=== PATIENT | female | born 1945 | race Caucasian/White ===

== ENCOUNTER 2017-04-24 17:53 | Inpatient (IN) | payer MEDICARE ==
[2017-04-24] MEDS ORDERED: SODIUM CHLORIDE 0.9% 1,000 ML IV STA (18:42)
[2017-04-24] MEDS ORDERED: IPRATROPIUM-ALBUTEROL 3 ML NEB INHALATION STA (18:42)
--- NOTE | 2017-04-24 18:45 | ED ---
General Adult HPI <Yao Juarez - Last Filed: 04/24/17 21:07> - General Source: patient, family, RN notes reviewed, old records reviewed Mode of arrival: wheelchair Limitations: no limitations <Myles Vieira - Last Filed: 04/28/17 14:29> - General Chief complaint: Shortness of Breath Stated complaint: congestion/swelling in legs Time Seen by Provider: 04/24/17 18:29 - History of Present Illness Initial comments: Patient 72-year-old female with significant past medical history for COPD, CHF, who presents emergency room today with a chief complaint of increased shortness of breath over the last week. She does admit that symptoms started a few weeks ago but is been progressively getting worse. Does admit that she's had some increased swelling down into her legs particular her right foot. Patient denies any other complaints or symptoms. She has been using Lasix 40 mg twice a day. Patient denies any fever, chills, chest pain, back pain, abdominal pain , nausea or vomiting, numbness tingling, dysuria, hematuria, headache, visual change. (Myles Vieira) - Related Data Home Medications Medication Instructions Recorded Confirmed Aspirin EC [Ecotrin Low Dose] 81 mg PO HS 07/03/16 04/24/17 ALPRAZolam [Xanax] 0.25 mg PO TID PRN 04/24/17 04/24/17 Furosemide [Lasix] 40 mg PO BID 04/24/17 04/24/17 Warfarin [Coumadin] 2.5 mg PO HS 04/24/17 04/24/17 Previous Rx's Medication Instructions Recorded Carvedilol [Coreg] 6.25 mg PO BID #60 tab 08/08/16 Allergies Allergy/AdvReac Type Severity Reaction Status Date / Time morphine AdvReac Altered Verified 04/24/17 20:07 Mental Status Review of Systems ROS Other: All systems not noted in ROS Statement are negative. <Yao Juarez - Last Filed: 04/24/17 21:07> ROS Other: All systems not noted in ROS Statement are negative. <Myles Vieira - Last Filed: 04/28/17 14:29> ROS Statement: Those systems with pertinent positive or pertinent negative responses have been documented in the HPI. Past Medical History Past Medical History: Asthma, Coronary Artery Disease (CAD), Cancer, COPD, Hyperlipidemia, Hypertension, Vascular Disorder Additional Past Medical History / Comment(s): 02 2-3 liters n/c: chronic heart failure, ischemic cardiopathy, 06/01/15 echo with L ventricular systolic function severely impaired with EF <20%, pt states lately she has had some bilateral ankle and feet edema, 2008 R breast cancer with sx and chemo, PVD, R foot numbness, some bilateral leg discomfort."HAD A PNE VACCINE 2014 NOT SURE OF DATE,DR OFFICE CLOSED AT TIME OF ADMIT. History of Any Multi-Drug Resistant Organisms: None Reported Past Surgical History: Breast Surgery, Heart Catheterization With Stent Additional Past Surgical History / Comment(s): 07/20/13 cardiac cath with stents x 2 to LCX, 06/03/15 ccath with stent to RCA, 09/2013 abd aneurysm repair bilateral fem bypass, 2008 right sided mastectomy Past Anesthesia/Blood Transfusion Reactions: No Reported Reaction Additional Past Anesthesia/Blood Transfusion Reaction / Comment(s): Pt received blood in the past without reaction. Date of Last Stent Placement:: 06/03/15 Past Psychological History: Anxiety Smoking Status: Former smoker Past Alcohol Use History: None Reported Past Drug Use History: None Reported - Past Family History Brother(s) Family Medical History: Cancer, Coronary Artery Disease (CAD) Additional Family Medical History / Comment(s): lost 2 brothers, one to suicide the other to brain/lung cancer Father Family Medical History: COPD Additional Family Medical History / Comment(s): Father was an alcoholic. He at age 56yrs of alcoholism and heart dx. Mother Family Medical History: No Reported History Additional Family Medical History / Comment(s): Mother is 91 yrs old and lives in a senior living but is basically healthy. <Myles Vieira - Last Filed: 04/28/17 14:29> General Exam Limitations: no limitations General appearance: alert, in no apparent distress Head exam: Present: atraumatic, normocephalic, normal inspection Eye exam: Present: normal appearance, PERRL, EOMI. Absent: scleral icterus, conjunctival injection, periorbital swelling ENT exam: Present: normal exam, mucous membranes moist Neck exam: Present: normal inspection. Absent: tenderness, meningismus, lymphadenopathy Respiratory exam: Present: accessory muscle use, decreased breath sounds Cardiovascular Exam: Present: regular rate, normal rhythm, normal heart sounds. Absent: systolic murmur, diastolic murmur, rubs, gallop, clicks GI/Abdominal exam: Present: soft, normal bowel sounds. Absent: distended, tenderness, guarding, rebound, rigid Extremities exam: Present: normal inspection, full ROM, normal capillary refill , pedal edema (R>L), other (Pulses equal bilaterally). Absent: tenderness, calf tenderness Back exam: Present: normal inspection Neurological exam: Present: alert, oriented X3, CN II-XII intact Psychiatric exam: Present: normal affect, normal mood Skin exam: Present: warm, dry, intact, normal color. Absent: rash <Myles Vieira - Last Filed: 04/28/17 14:29> EKG Findings - EKG Comments: EKG Findings:: EKG performed at 2039: Shows normal sinus rhythm at 60 bpm. MO interval 124. QRS 88. QT/QTc 472/479. No acute ST change. <Myles Vieira - Last Filed: 04/28/17 14:29> Medical Decision Making - Lab Data Result diagrams: 04/24/17 19:30 04/24/17 19:30 <Yao Juarez - Last Filed: 04/24/17 21:07> - Lab Data Result diagrams: 04/26/17 07:05 04/27/17 07:40 <Myles Vieira - Last Filed: 04/28/17 14:29> - Medical Decision Making I was asked to enter replacement ordered for this patient. I did not take part in the patient's care other than placing the requested placement order. (Yao Juarez) Case was discussed and signed out to attending physician while labs were still pending at approximately 2000. Patient's labs reviewed show elevated BNP. Patient's INR 3.2. Coumadin held. Patient admitted for congestive heart failure exacerbation. (Myles Vieira) - Lab Data Lab Results 04/24/17 04/24/17 04/24/17 Range/Units 19:30 19:30 19:30 WBC 7.0 (3.8-10.6) k/uL RBC 4.82 (3.80-5.40) m/uL Hgb 14.9 (11.4-16.0) gm/dL Hct 45.0 (34.0-46.0) % MCV 93.3 (80.0-100.0) fL MCH 30.9 (25.0-35.0) pg MCHC 33.1 (31.0-37.0) g/dL RDW 15.3 (11.5-15.5) % Plt Count 270 (150-450) k/uL Neutrophils % 60 % Lymphocytes % 28 % Monocytes % 6 % Eosinophils % 2 % Basophils % 1 % Neutrophils # 4.2 (1.3-7.7) k/uL Lymphocytes # 2.0 (1.0-4.8) k/uL Monocytes # 0.4 (0-1.0) k/uL Eosinophils # 0.1 (0-0.7) k/uL Basophils # 0.1 (0-0.2) k/uL Hypochromasia Moderate Poikilocytosis Slight PT (9.0-12.0) sec INR (<1.2) APTT (22.0-30.0) sec Sodium 142 (137-145) mmol/L Potassium 3.2 L (3.5-5.1) mmol/L Chloride 104 (98-107) mmol/L Carbon Dioxide 26 (22-30) mmol/L Anion Gap 12 mmol/L BUN 16 (7-17) mg/dL Creatinine 0.76 (0.52-1.04) mg/dL Est GFR (MDRD) Af Amer >60 (>60 ml/min/1.73 sqM) Est GFR (MDRD) Non-Af >60 (>60 ml/min/1.73 sqM) Glucose 76 (74-99) mg/dL Calcium 9.1 (8.4-10.2) mg/dL Total Bilirubin 1.0 (0.2-1.3) mg/dL AST 31 (14-36) U/L ALT 33 (9-52) U/L Alkaline Phosphatase 115 (38-126) U/L Total Creatine Kinase (30-135) U/L CK-MB (CK-2) (0.0-2.4) ng/mL CK-MB (CK-2) Rel Index Troponin I (0.000-0.034) ng/mL NT-Pro-B Natriuret Pep 94046 pg/mL Total Protein 6.6 (6.3-8.2) g/dL Albumin 3.7 (3.5-5.0) g/dL 04/24/17 04/24/17 Range/Units 19:30 19:30 WBC (3.8-10.6) k/uL RBC (3.80-5.40) m/uL Hgb (11.4-16.0) gm/dL Hct (34.0-46.0) % MCV (80.0-100.0) fL MCH (25.0-35.0) pg MCHC (31.0-37.0) g/dL RDW (11.5-15.5) % Plt Count (150-450) k/uL Neutrophils % % Lymphocytes % % Monocytes % % Eosinophils % % Basophils % % Neutrophils # (1.3-7.7) k/uL Lymphocytes # (1.0-4.8) k/uL Monocytes # (0-1.0) k/uL Eosinophils # (0-0.7) k/uL Basophils # (0-0.2) k/uL Hypochromasia Poikilocytosis PT 31.5 H (9.0-12.0) sec INR 3.2 H (<1.2) APTT 31.2 H (22.0-30.0) sec Sodium (137-145) mmol/L Potassium (3.5-5.1) mmol/L Chloride (98-107) mmol/L Carbon Dioxide (22-30) mmol/L Anion Gap mmol/L BUN (7-17) mg/dL Creatinine (0.52-1.04) mg/dL Est GFR (MDRD) Af Amer (>60 ml/min/1.73 sqM) Est GFR (MDRD) Non-Af (>60 ml/min/1.73 sqM) Glucose (74-99) mg/dL Calcium (8.4-10.2) mg/dL Total Bilirubin (0.2-1.3) mg/dL AST (14-36) U/L ALT (9-52) U/L Alkaline Phosphatase (38-126) U/L Total Creatine Kinase 55 (30-135) U/L CK-MB (CK-2) 2.3 (0.0-2.4) ng/mL CK-MB (CK-2) Rel Index 4.2 Troponin I <0.012 (0.000-0.034) ng/mL NT-Pro-B Natriuret Pep pg/mL Total Protein (6.3-8.2) g/dL Albumin (3.5-5.0) g/dL Disposition <Yao Juarez - Last Filed: 04/24/17 21:07> Time of Disposition: 19:25 <Myles Vieira - Last Filed: 04/28/17 14:29> Clinical Impression: CHF exacerbation Disposition: ADMITTED IP TO THIS HOSP Condition: Stable
[2017-04-24] MEDS ORDERED: FUROSEMIDE 10 MG/ML 4 ML VIAL IV STA (18:57)
[2017-04-24] MEDS ORDERED: IPRATROPIUM-ALBUTEROL 3 ML NEB INHALATION PRN (18:58)
[2017-04-24 19:49] LABS: Basophils # (A) 0.1 k/uL (0-0.2); Basophils % (A) 1 %; CH 29.3; CHCM 31.6; Eosinophils # (A) 0.1 k/uL (0-0.7); Eosinophils % (A) 2 %; HDW 3.46; HGB 14.9 gm/dL (11.4-16.0); Hypochromasia Moderate; Luc # (Auto) 0.19; Luc % (Auto) 3; Lymphocytes % (A) 28 %; MCH 30.9 pg (25.0-35.0); MCHC 33.1 g/dL (31.0-37.0); MCV 93.3 fL (80.0-100.0); Mean Platelet Volume 7.3; Monocytes # (A) 0.4 k/uL (0-1.0); Monocytes % (A) 6 %; Neutrophils # (A) 4.2 k/uL (1.3-7.7); Neutrophils % (A) 60 %; Poikilocytosis Slight; RBC 4.82 m/uL (3.80-5.40); RDW 15.3 % (11.5-15.5); WBC (Perox) 7.06
[2017-04-24 19:52] LABS: ALT 33 U/L (9-52); AST 31 U/L (14-36); Alkaline Phosphatase 115 U/L (38-126); Anion Gap 12 mmol/L; Blood Urea Nitrogen 16 mg/dL (7-17); Calcium 9.1 mg/dL (8.4-10.2); Carbon Dioxide 26 mmol/L (22-30); Chloride 104 mmol/L (98-107); Glucose 76 mg/dL (74-99); INR 3.2 (<1.2); Non-African American GFR(MDRD) >60 (>60 ml/min/1.73 sqM); Partial Thromboplastin Time 31.2 sec (22.0-30.0); Potassium 3.2 mmol/L (3.5-5.1); Prothrombin Time 31.5 sec (9.0-12.0); Sodium 142 mmol/L (137-145); Total Protein 6.6 g/dL (6.3-8.2)
[2017-04-24 20:01] LABS: Creatine Kinase 55 U/L (30-135)
[2017-04-24 20:15] LABS: Creatine Kinase MB 2.3 ng/mL (0.0-2.4); Troponin I <0.012 ng/mL (0.000-0.034)
--- NOTE | 2017-04-24 20:45 | XR ---
EXAMINATION TYPE: XR chest 2V DATE OF EXAM: 04/24/2017 COMPARISON: 08/07/2016 HISTORY: Short of breath TECHNIQUE: Frontal and lateral views of the chest are obtained. FINDINGS: Heart is enlarged. There is no heart failure. Lungs are clear of consolidation. Thoracic a rick is atheromatous. There is no pleural effusion. IMPRESSION: Cardiomegaly. No heart failure. There is clearing of small pleural effusions compared to old exam.
[2017-04-25] MEDS: FUROSEMIDE 10 MG/ML 4 ML VIAL IV SCH ×3 (01:20→15:35)
[2017-04-25] MEDS: SODIUM CHLORIDE 0.9% 1,000 ML IV SCH ×2 (01:33→20:10)
--- NOTE | 2017-04-25 08:58 | P.HPIM ---
History of Present Illness H&P Date: 04/25/17 Chief Complaint: Shortness of breath. This is a history and physical on a 72-year-old white female with known history of previous breast cancer and deep vein thrombosis with element of COPD. The patient was doing quite well at home, doing her activities of daily living for the most summer but had 2-3 day worsening shortness of breath with edema. She is now admitted for COPD with congestive heart failure. Review of Systems Constitutional: Denies chills, Denies fever Eyes: denies blurred vision, denies pain Ears, nose, mouth and throat: Denies headache, Denies sore throat Respiratory: Reports cough Gastrointestinal: Denies abdominal pain, Denies diarrhea, Denies nausea, Denies vomiting Genitourinary: Denies dysuria, Denies hematuria Past Medical History Past Medical History: Asthma, Coronary Artery Disease (CAD), Cancer, COPD, Hyperlipidemia, Hypertension, Vascular Disorder Additional Past Medical History / Comment(s): 02 2-3 liters n/c: chronic heart failure, ischemic cardiopathy, 06/01/15 echo with L ventricular systolic function severely impaired with EF <20%, pt states lately she has had some bilateral ankle and feet edema, 2008 R breast cancer with sx and chemo, PVD, R foot numbness, some bilateral leg discomfort."HAD A PNE VACCINE 2014 NOT SURE OF DATE,DR OFFICE CLOSED AT TIME OF ADMIT. History of Any Multi-Drug Resistant Organisms: None Reported Past Surgical History: Breast Surgery, Heart Catheterization With Stent Additional Past Surgical History / Comment(s): 07/20/13 cardiac cath with stents x 2 to LCX, 06/03/15 ccath with stent to RCA, 09/2013 abd aneurysm repair bilateral fem bypass, 2009 right sided mastectomy Past Anesthesia/Blood Transfusion Reactions: No Reported Reaction Additional Past Anesthesia/Blood Transfusion Reaction / Comment(s): Pt received blood in the past without reaction. 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 currentl recieving home cares services.(visiting nurses)5 Smoking Status: Former smoker Past Alcohol Use History: None Reported Additional Past Alcohol Use History / Comment(s): Pt smoked from 1963 to 2012 . She has not had any alcohol since age 23 yrs because her father was an alcoholic. There is a cat in the home. Past Drug Use History: None Reported Additional Drug Use History / Comment(s): no drinking since age 23 as dad was an alcoholic - Past Family History Brother(s) Family Medical History: Cancer, Coronary Artery Disease (CAD) Additional Family Medical History / Comment(s): lost 2 brothers, one to suicide the other to brain/lung cancer Father Family Medical History: COPD Additional Family Medical History / Comment(s): Father was an alcoholic. He at age 56yrs of alcoholism and heart dx. Mother Family Medical History: No Reported History Additional Family Medical History / Comment(s): Mother is at age 92, 11/23 Medications and Allergies Home Medications Medication Instructions Recorded Confirmed Type Aspirin EC [Ecotrin Low Dose] 81 mg PO HS 07/03/16 04/24/17 History ALPRAZolam [Xanax] 0.25 mg PO TID PRN 04/24/17 04/24/17 History Furosemide [Lasix] 40 mg PO BID 04/24/17 04/24/17 History Warfarin [Coumadin] 2.5 mg PO HS 04/24/17 04/24/17 History Allergies Allergy/AdvReac Type Severity Reaction Status Date / Time morphine AdvReac Altered Verified 04/24/17 20:07 Mental Status Physical Exam Vitals: Vital Signs Temp Pulse Pulse Resp BP BP Pulse Ox 04/25/17 07:00 97.6 F 71 18 134/93 100 04/24/17 22:35 95.3 F L 92 24 141/98 100 04/24/17 22:00 86 20 147/90 96 04/24/17 21:01 74 22 108/62 95 04/24/17 19:35 69 22 145/69 93 L 04/24/17 19:05 72 04/24/17 18:52 67 04/24/17 18:21 96.8 F L 65 22 132/82 98 Intake and Output 04/24/17 04/25/17 04/25/17 22:59 06:59 14:59 Intake Total 200 Balance 200 Intake: Oral 200 Other: # Voids 4 # Bowel Movements 0 Weight 40.823 kg 45.677 kg - Constitutional General appearance: thin - EENT Eyes: no abnormal pupil - Respiratory Respiratory: bilateral: diminished - Cardiovascular Rhythm: regular Heart sounds: normal: S1, S2 - Gastrointestinal General gastrointestinal: soft, no tenderness - Integumentary Edema is noted on the right greater than the left lower extremity. - Psychiatric Psychiatric: A&O x's 3 Results CBC & Chem 7: 04/24/17 19:30 04/24/17 19:30 Labs: Abnormal Lab Results - Last 24 Hours (Table) 04/24/17 04/24/17 Range/Units 19:30 19:30 PT 31.5 H (9.0-12.0) sec INR 3.2 H (<1.2) APTT 31.2 H (22.0-30.0) sec Potassium 3.2 L (3.5-5.1) mmol/L Thrombosis Risk Factor Assmnt - Choose All That Apply Each Factor Represents 1 point: Swollen legs (current) Thrombosis Risk Factor Assessment Total Risk Factor Score: 1 Thrombosis Risk Factor Assessment Level: Low Risk Assessment and Plan (1) CHF exacerbation Status: Acute (2) Acute exacerbation of chronic obstructive airways disease Status: Acute (3) CAD (coronary artery disease) Status: Acute (4) HTN (hypertension) Status: Acute (5) High risk for readmission Status: Acute (6) Ischemic cardiomyopathy Status: Acute Plan: Continue diuresis with the patient. Check echocardiogram per Check CMP and CBC in a.m. We'll continue to follow. She wishes to be DO NOT RESUSCITATE at this time.
[2017-04-25] MEDS ORDERED: ALPRAZolam 0.25 MG TAB PO PRN (08:59)
[2017-04-25] MEDS: CARVEDILOL 6.25 MG TAB PO SCH ×2 (10:04→20:07)
[2017-04-25] MEDS ORDERED: ACETAMINOPHEN TAB 325 MG TAB PO PRN (10:06)
[2017-04-25 10:52] VITALS: BMI 17.8
[2017-04-25] MEDS: ASPIRIN 81 MG CHEW PO SCH (20:07)
[2017-04-25] MEDS ORDERED: WARFARIN 2.5 MG TAB PO SCH (21:00)
[2017-04-26] MEDS: FUROSEMIDE 10 MG/ML 4 ML VIAL IV SCH ×4 (00:11→23:39)
[2017-04-26] MEDS: CARVEDILOL 6.25 MG TAB PO SCH ×2 (07:28→19:58)
[2017-04-26 07:43] LABS: Anisocytosis Slight; CH 30.3; HCT 44.5 % (34.0-46.0); HDW 3.21; HGB 13.6 gm/dL (11.4-16.0); Hypochromasia Moderate; MCHC 30.6 g/dL (31.0-37.0); MCV 98.1 fL (80.0-100.0); Macrocytosis Slight; Mean Platelet Volume 8.2; RBC 4.54 m/uL (3.80-5.40); RDW 16.6 % (11.5-15.5); WBC 8.7 k/uL (3.8-10.6)
[2017-04-26 07:48] LABS: INR 1.8 (<1.2); Prothrombin Time 17.5 sec (9.0-12.0)
[2017-04-26 08:15] LABS: ALT 29 U/L (9-52); AST 35 U/L (14-36); Alkaline Phosphatase 98 U/L (38-126); Anion Gap 7 mmol/L; Blood Urea Nitrogen 20 mg/dL (7-17); Calcium 8.7 mg/dL (8.4-10.2); Carbon Dioxide 34 mmol/L (22-30); Chloride 99 mmol/L (98-107); Glucose 73 mg/dL (74-99); Non-African American GFR(MDRD) >60 (>60 ml/min/1.73 sqM); Sodium 140 mmol/L (137-145); Total Bilirubin 1.4 mg/dL (0.2-1.3); Total Protein 6.2 g/dL (6.3-8.2)
[2017-04-26 08:27] LABS: Potassium 3.5 mmol/L (3.5-5.1)
--- NOTE | 2017-04-26 08:46 | P.PN ---
Subjective Principal diagnosis: Congestive heart failure The patient is here essentially for CHF. The patient is doing much better but still has some edema. Breathing is still somewhat labored. Will continue current regimen or treatment. She has an underlying history of DVT and previous breast cancer also. Echocardiogram is pending. Objective - Vital Signs Vital signs: Vital Signs Temp 97.6 F 04/26/17 07:00 Pulse 64 04/26/17 07:00 Resp 18 04/26/17 07:00 BP 116/76 04/26/17 07:00 Pulse Ox 99 04/26/17 07:00 Intake & Output 04/25/17 04/26/17 04/26/17 18:59 06:59 18:59 Weight 45.677 kg 44 kg Other: # Voids 6 1 - Constitutional General appearance: Present: thin - EENT Eyes: Absent: abnormal pupil - Respiratory Respiratory: bilateral: diminished, prolonged expiration - Cardiovascular Heart sounds: normal: S1, S2 - Gastrointestinal General gastrointestinal: Present: soft. Absent: tenderness - Neurologic Neurologic: Present: CNII-XII intact - Labs CBC & Chem 7: 04/26/17 07:05 04/26/17 07:05 Labs: Abnormal Lab Results - Last 24 Hours (Table) 04/26/17 04/26/17 04/26/17 Range/Units 07:05 07:05 07:05 MCHC 30.6 L (31.0-37.0) g/dL RDW 16.6 H (11.5-15.5) % PT 17.5 H (9.0-12.0) sec INR 1.8 H (<1.2) Carbon Dioxide 34 H (22-30) mmol/L BUN 20 H (7-17) mg/dL Glucose 73 L (74-99) mg/dL Total Bilirubin 1.4 H (0.2-1.3) mg/dL Total Protein 6.2 L (6.3-8.2) g/dL Albumin 3.3 L (3.5-5.0) g/dL Assessment and Plan (1) CHF exacerbation Status: Acute (2) Acute exacerbation of chronic obstructive airways disease Status: Acute (3) CAD (coronary artery disease) Status: Acute (4) HTN (hypertension) Status: Acute (5) High risk for readmission Status: Acute (6) Ischemic cardiomyopathy Status: Acute Plan: Continue current regimen of treatment. Wean off of IV Lasix in the next several days. Anticipate discharge in next 48 hours or so. [facility] will be covering for the weekend Check CMP in a.m.
--- NOTE | 2017-04-26 10:43 | ECHOF ---
Referral Reason:CHF MEASUREMENTS -------- HEIGHT: 160.0 cm WEIGHT: 45.4 kg BP: RVIDd: 2.9 cm (< 3.3) IVSd: 1.0 cm (0.6 - 1.1) LVIDd: 5.5 cm (3.9 - 5.3) LVPWd: 1.0 cm (0.6 - 1.1) IVSs: 1.1 cm LVIDs: 4.8 cm LVPWs: 1.3 cm LAESV Index (A-L): 38.95 ml/m Ao Diam: 3.1 cm (2.0 - 3.7) AV Cusp: 1.4 cm (1.5 - 2.6) LA Diam: 4.2 cm (2.7 - 3.8) MV EXCURSION: 9.761 mm (> 18.000) MV EF SLOPE: 71 mm/s (70 - 150) EPSS: 2.6 cm MV E Rafi: 0.61 m/s MV DecT: 286 ms MV A Rafi: 0.23 m/s MV E/A Ratio: 2.68 RAP: 5.00 mmHg RVSP: 38.19 mmHg FINDINGS -------- Sinus rhythm. This was a technically adequate study. The left ventricle is mildly dilated. Overall left ventricular systolic function is severely impaired with, an EF between 20 - 25 %. The right ventricular systolic function is severely impaired. LA is moderately dilated 34-39 ml/m2 RA appears enlarged. Aortic valve is trileaflet and is mildly thickened. There is no evidence of aortic regurgitation. There is no evidence of aortic stenosis. The mitral valve leaflets are mildly thickened. There is trace to mild mitral regurgitation. Moderate to severe tricuspid regurgitation present. There is mild pulmonary hypertension. The right ventricular systolic pressure, as measured by Doppler, is 38.19mmHg. The pulmonic valve was not well visualized. The aortic root size is normal. Normal inferior vena cava with normal inspiratory collapse consistent with estimated right atrial pressure of 5 mmHg. The pericardium is normal. There is no pericardial effusion. CONCLUSIONS -------- 1. Sinus rhythm. 2. There is trace to mild mitral regurgitation. 3. Moderate to severe tricuspid regurgitation present. 4. There is mild pulmonary hypertension. 5. The right ventricular systolic pressure, as measured by Doppler, is 38.19mmHg. 6. The pulmonic valve was not well visualized. 7. The aortic root size is normal. 8. There is no pericardial effusion. 9. This was a technically adequate study. 10. The left ventricle is mildly dilated. 11. Overall left ventricular systolic function is severely impaired with, an EF between 20 - 25 %. 12. The right ventricular systolic function is severely impaired. 13. LA is moderately dilated 34-39 ml/m2 14. RA appears enlarged. 15. Aortic valve is trileaflet and is mildly thickened. 16. The mitral valve leaflets are mildly thickened. ENERGY ANALYST: Nikos Pollock RDCS
--- NOTE | 2017-04-26 16:45 | CDI ---
In responding to this query, please exercise your independent professional judgment. The [facility] Coding Staff and Clinical Documentation Specialists appreciate your assistance in clarifying documentation, maintaining compliance with coding guidelines, accurately documenting patients condition and capturing severity of illness. The fact that a question is asked does not imply that any particular answer is desired or expected. Communication forms are a method of clarifying documentation and are not made part of the Legal Health Record. Thank you in advance for your clarification. Last Revision, November 2016 Mindi Beth [address] [address] Documentation Clarification Form Date: 04/26/2017 4:29:00 PM From: Rere Hearn Admit Date: 04/24/2017 9:06:00 PM Patient Name: Ana Maria Gordon Visit Number: [id number] Discharge Date: Dr. Aric Ruano CHF is documented in the H&P and Progress notes. History/Risk Factors: HTN, COPD, CHF, Former smoker Clinical Indicators: Presents with complaint of increased shortness of breath. She admits to increased swelling down into her legs particular her right foot. Respiratory exam: Accessory muscle use, decreased breath sounds VS/Pulse OX: 132/82 65 22 96.8 98 % ra BNP: 12946 Echocardiogram Results: Mild pulmonary hypertension, right ventricle systolic function severe impaired with an EF between 20-25 % Chest X Ray: Cardiomegaly, no heart failure. There is clearing of small pleural effusion. Treatment: Monitor O2 Sat's Duoneb's PRN Lasix IV Coreg PO In your professional opinion, can you please clarify the acuity and type of CHF if known? Systolic Heart Failure: Acute Chronic Acute on Chronic Diastolic Heart Failure: Acute Chronic Acute on Chronic Systolic & Diastolic Heart Failure: Acute Chronic Acute on Chronic Unable to determine Other, please specify Please document in your progress notes and discharge summary in order to capture severity of illness and risk of mortality. Include clinical findings that support your diagnosis. FYI: Press F11 to launch patient chart. HARI
[2017-04-26] MEDS: SODIUM CHLORIDE 0.9% 1,000 ML IV SCH (19:58)
[2017-04-26] MEDS: ASPIRIN 81 MG CHEW PO SCH (19:58)
[2017-04-27] MEDS: CARVEDILOL 6.25 MG TAB PO SCH ×2 (07:53→19:55)
[2017-04-27] MEDS: FUROSEMIDE 10 MG/ML 4 ML VIAL IV SCH ×3 (07:53→23:16)
[2017-04-27 08:29] LABS: INR 1.6 (<1.2); Prothrombin Time 15.2 sec (9.0-12.0)
[2017-04-27 08:48] LABS: ALT 34 U/L (9-52); AST 28 U/L (14-36); Alkaline Phosphatase 128 U/L (38-126); Anion Gap 14 mmol/L; Blood Urea Nitrogen 23 mg/dL (7-17); Calcium 9.4 mg/dL (8.4-10.2); Carbon Dioxide 29 mmol/L (22-30); Chloride 99 mmol/L (98-107); Glucose 132 mg/dL (74-99); Non-African American GFR(MDRD) >60 (>60 ml/min/1.73 sqM); Potassium 3.4 mmol/L (3.5-5.1); Sodium 142 mmol/L (137-145); Total Bilirubin 1.3 mg/dL (0.2-1.3); Total Protein 6.5 g/dL (6.3-8.2)
[2017-04-27] MEDS: SODIUM CHLORIDE 0.9% 1,000 ML IV SCH (19:55)
[2017-04-27] MEDS: ASPIRIN 81 MG CHEW PO SCH (19:55)
--- NOTE | 2017-04-27 23:36 | P.PN ---
Subjective Principal diagnosis: Congestive heart failure The patient is here essentially for CHF. The patient is doing much better but still has some edema. Breathing is still somewhat labored. Will continue current regimen or treatment. She has an underlying history of DVT and previous breast cancer also. Echocardiogram showed his ejection fraction 20-25 % and mild pulmonary hypertension. On 04/27/2017 Patient is still having short of breath with minimal ambulation No complaints of chest pain. No nausea vomiting no abdominal pain or acute overnight issues.. Objective - Vital Signs Vital signs: Vital Signs Temp 96.6 F L 04/27/17 15:00 Pulse 68 04/27/17 19:53 Resp 16 04/27/17 15:00 BP 127/68 04/27/17 19:53 Pulse Ox 97 04/27/17 15:00 Intake & Output 04/27/17 04/27/17 04/28/17 06:59 18:59 06:59 Intake Total 850 Balance 850 Weight 62.5 kg Intake: Oral 850 Other: # Voids 2 2 # Bowel Movements 2 - Exam PHYSICAL EXAMINATION: Patient is lying in the bed comfortably, no acute distress, awake alert and oriented.. HEENT: Normocephalic. Neck is supple. Pupils reactive. Nostrils clear. Oral cavity is moist. Ears reveal no drainage. Neck reveals no JVD, carotid bruits, or thyromegaly. CHEST EXAMINATION: Trachea is central. Symmetrical expansion. Bilateral decreased air entry. Minimal expiratory wheezing CARDIAC: Normal S1, S2 with no gallops. No murmurs ABDOMEN: Soft. Bowel sounds normal. No organomegaly. No abdominal bruits. Extremities trace edema. No clubbing or cyanosis Neurologically awake, alert, oriented x3 with well-coordinated movements. Skin: no rash or skin lesions Musculoskeletal: no joint swelling or deformity. - Labs CBC & Chem 7: 04/26/17 07:05 04/27/17 07:40 Labs: Abnormal Lab Results - Last 24 Hours (Table) 04/27/17 04/27/17 Range/Units 07:40 07:40 PT 15.2 H (9.0-12.0) sec INR 1.6 H (<1.2) Potassium 3.4 L (3.5-5.1) mmol/L BUN 23 H (7-17) mg/dL Glucose 132 H (74-99) mg/dL Alkaline Phosphatase 128 H (38-126) U/L Assessment and Plan Plan: #1 acute on chronic CHF with systolic dysfunction ejection fraction 20-25% #2 chronic atrial fibrillation #3 severe COPD with mild exacerbation #4 ischemic myopathy #5 peripheral vascular disease #6 chronic hypoxic respiratory failure secondary to COPD on home oxygen #7 history of breast cancer #8 hypertension #9 anxiety #10 Coumadin monitoring CODE STATUS DO NOT RESUSCITATE/DO NOT INTUBATE Plan: Patient will be continued on IV Lasix. Every 8 hours hourly. Continue the Coreg. We will add low-dose lisinopril. And statins. We will continue the breathing treatments and continue the Coumadin monitoring and follow closely. Prognosis is guarded with multiple medical problems and comorbid conditions. Time with Patient: Greater than 30
[2017-04-28] MEDS: FUROSEMIDE 10 MG/ML 4 ML VIAL IV SCH ×2 (08:11→20:19)
[2017-04-28] MEDS: CARVEDILOL 6.25 MG TAB PO SCH ×2 (08:11→20:19)
[2017-04-28 09:15] LABS: INR 1.3 (<1.2); Prothrombin Time 12.5 sec (9.0-12.0)
[2017-04-28] MEDS ORDERED: WARFARIN 2.5 MG TAB PO SCH (18:00)
[2017-04-28] MEDS: SODIUM CHLORIDE 0.9% 1,000 ML IV SCH (20:16)
[2017-04-28] MEDS: ASPIRIN 81 MG CHEW PO SCH (20:19)
[2017-04-28] MEDS: ATORVASTATIN 40 MG TAB PO SCH (20:19)
--- NOTE | 2017-04-29 01:05 | P.PN ---
Subjective Principal diagnosis: Congestive heart failure The patient is here essentially for CHF. The patient is doing much better but still has some edema. Breathing is still somewhat labored. Will continue current regimen or treatment. She has an underlying history of DVT and previous breast cancer also. Echocardiogram showed his ejection fraction 20-25 % and mild pulmonary hypertension. On 04/27/2017 Patient is still having short of breath with minimal ambulation No complaints of chest pain. No nausea vomiting no abdominal pain or acute overnight issues.. 04/28/2017 Patient is still complaining of short of breath. No complaints of chest pain. Leg swelling much improved. Denied any headache dizziness or lightheadedness. INR is 1.3 and started back on Coumadin. Objective - Vital Signs Vital signs: Vital Signs Temp 97.1 F L 04/28/17 14:38 Pulse 70 04/28/17 14:38 Resp 18 04/28/17 14:38 BP 129/63 04/28/17 14:38 Pulse Ox 97 04/28/17 14:38 Intake & Output 04/28/17 04/28/17 04/29/17 06:59 18:59 06:59 Intake Total 1200 Balance 1200 Weight 59.5 kg Intake: Oral 1200 Other: Voiding Method Bedside Commode # Voids 1 1 - Exam PHYSICAL EXAMINATION: Patient is lying in the bed comfortably, no acute distress, awake alert and oriented.. HEENT: Normocephalic. Neck is supple. Pupils reactive. Nostrils clear. Oral cavity is moist. Ears reveal no drainage. Neck reveals no JVD, carotid bruits, or thyromegaly. CHEST EXAMINATION: Trachea is central. Symmetrical expansion. Bilateral decreased air entry. Minimal expiratory wheezing CARDIAC: Normal S1, S2 with no gallops. No murmurs ABDOMEN: Soft. Bowel sounds normal. No organomegaly. No abdominal bruits. Extremities trace edema. No clubbing or cyanosis Neurologically awake, alert, oriented x3 with well-coordinated movements. Skin: no rash or skin lesions Musculoskeletal: no joint swelling or deformity. - Labs CBC & Chem 7: 04/26/17 07:05 04/27/17 07:40 Labs: Abnormal Lab Results - Last 24 Hours (Table) 04/28/17 Range/Units 08:37 PT 12.5 H (9.0-12.0) sec INR 1.3 H (<1.2) Assessment and Plan Plan: #1 acute on chronic CHF with systolic dysfunction ejection fraction 20-25% #2 chronic atrial fibrillation #3 severe COPD with mild exacerbation #4 ischemic myopathy #5 peripheral vascular disease #6 chronic hypoxic respiratory failure secondary to COPD on home oxygen #7 history of breast cancer #8 hypertension #9 anxiety #10 Coumadin monitoring CODE STATUS DO NOT RESUSCITATE/DO NOT INTUBATE Plan: Patient will be continued on IV Lasix. Every 8 hours hourly. Continue the Coreg. We will add low-dose lisinopril. And statins. Started her back on Coumadin. We will continue the breathing treatments and continue the Coumadin monitoring and follow closely. Prognosis is guarded with multiple medical problems and comorbid conditions. Time with Patient: Greater than 30
[2017-04-29] MEDS: LISINOPRIL 2.5 MG TAB PO SCH (07:48)
[2017-04-29] MEDS: CARVEDILOL 6.25 MG TAB PO SCH ×2 (07:48→20:48)
[2017-04-29] MEDS: FUROSEMIDE 10 MG/ML 4 ML VIAL IV SCH ×2 (07:48→20:47)
[2017-04-29 08:11] LABS: Anisocytosis Slight; Basophils # (A) 0.1 k/uL (0-0.2); Basophils % (A) 1 %; CH 30.4; CHCM 31.2; Eosinophils # (A) 0.2 k/uL (0-0.7); Eosinophils % (A) 3 %; HCT 50.9 % (34.0-46.0); HDW 3.14; HGB 15.8 gm/dL (11.4-16.0); Hypochromasia Moderate; Luc # (Auto) 0.21; Luc % (Auto) 3; Lymphocytes % (A) 26 %; MCH 30.5 pg (25.0-35.0); MCV 98.2 fL (80.0-100.0); Macrocytosis Slight; Mean Platelet Volume 7.8; Monocytes # (A) 0.5 k/uL (0-1.0); Monocytes % (A) 7 %; Neutrophils # (A) 4.7 k/uL (1.3-7.7); Neutrophils % (A) 61 %; RBC 5.19 m/uL (3.80-5.40); RDW 17.1 % (11.5-15.5); WBC 7.6 k/uL (3.8-10.6); WBC (Perox) 7.67
[2017-04-29 08:27] LABS: INR 1.2 (<1.2); Prothrombin Time 12.2 sec (9.0-12.0)
[2017-04-29 08:33] LABS: Anion Gap 10 mmol/L; Blood Urea Nitrogen 25 mg/dL (7-17); Calcium 9.5 mg/dL (8.4-10.2); Carbon Dioxide 31 mmol/L (22-30); Chloride 97 mmol/L (98-107); Glucose 84 mg/dL (74-99); Non-African American GFR(MDRD) >60 (>60 ml/min/1.73 sqM); Potassium 3.9 mmol/L (3.5-5.1); Sodium 138 mmol/L (137-145)
--- NOTE | 2017-04-29 08:44 | P.PN ---
Subjective Principal diagnosis: Congestive heart failure The patient is here essentially for CHF. The patient is doing much better but still has some edema. Breathing is still somewhat labored. Will continue current regimen or treatment. She has an underlying history of DVT and previous breast cancer also. Echocardiogram is pending. Objective - Vital Signs Vital signs: Vital Signs Temp 97.5 F L 04/29/17 07:00 Pulse 59 L 04/29/17 07:00 Resp 18 04/29/17 07:00 BP 128/78 04/29/17 07:00 Pulse Ox 96 04/29/17 07:00 Intake & Output 04/28/17 04/29/17 04/29/17 18:59 06:59 18:59 Intake Total 1200 800 Balance 1200 800 Weight 60 kg Intake: Oral 1200 800 Other: # Voids 1 2 - Constitutional General appearance: Present: thin - EENT Eyes: Absent: abnormal pupil - Respiratory Respiratory: bilateral: diminished - Cardiovascular Rhythm: regular Heart sounds: normal: S1, S2 - Gastrointestinal General gastrointestinal: Present: soft. Absent: tenderness - Neurologic Neurologic: Present: CNII-XII intact - Labs CBC & Chem 7: 04/29/17 07:43 04/29/17 07:43 Labs: Abnormal Lab Results - Last 24 Hours (Table) 04/28/17 04/29/17 04/29/17 Range/Units 08:37 07:43 07:43 Hct 50.9 H (34.0-46.0) % RDW 17.1 H (11.5-15.5) % PT 12.5 H (9.0-12.0) sec INR 1.3 H (<1.2) Chloride 97 L (98-107) mmol/L Carbon Dioxide 31 H (22-30) mmol/L BUN 25 H (7-17) mg/dL 04/29/17 Range/Units 07:43 Hct (34.0-46.0) % RDW (11.5-15.5) % PT 12.2 H (9.0-12.0) sec INR 1.2 H (<1.2) Chloride (98-107) mmol/L Carbon Dioxide (22-30) mmol/L BUN (7-17) mg/dL Assessment and Plan (1) CHF exacerbation Status: Acute (2) Acute exacerbation of chronic obstructive airways disease Status: Acute (3) CAD (coronary artery disease) Status: Acute (4) HTN (hypertension) Status: Acute (5) High risk for readmission Status: Acute (6) Ischemic cardiomyopathy Status: Acute Plan: We'll go ahead and start Solu-Medrol for COPD. Check PT/INR in the a.m. We'll titrate warfarin to 3.5 mg daily. See orders otherwise.
[2017-04-29] MEDS: methylPREDNISolone SOD SUCCI 40 MG/ML 1 ML VIAL IV SCH ×3 (09:08→23:52)
[2017-04-29] MEDS ORDERED: WARFARIN 0.5 MG TAB PO SCH (18:00)
[2017-04-29] MEDS ORDERED: WARFARIN 3 MG TAB PO SCH (18:00)
[2017-04-29] MEDS: ATORVASTATIN 40 MG TAB PO SCH (20:48)
[2017-04-29] MEDS: ASPIRIN 81 MG CHEW PO SCH (20:48)
[2017-04-29] MEDS: SODIUM CHLORIDE 0.9% 1,000 ML IV SCH (20:48)
[2017-04-30] MEDS: CARVEDILOL 6.25 MG TAB PO SCH ×2 (07:42→20:04)
[2017-04-30] MEDS: LISINOPRIL 2.5 MG TAB PO SCH (07:42)
[2017-04-30] MEDS: FUROSEMIDE 10 MG/ML 4 ML VIAL IV SCH (07:42)
[2017-04-30] MEDS: methylPREDNISolone SOD SUCCI 40 MG/ML 1 ML VIAL IV SCH ×3 (07:42→23:42)
[2017-04-30 07:44] LABS: CH 29.3; CHCM 30.8; HCT 50.8 % (34.0-46.0); HDW 3.13; HGB 15.8 gm/dL (11.4-16.0); Hypochromasia Marked; MCH 29.7 pg (25.0-35.0); MCHC 31.1 g/dL (31.0-37.0); MCV 95.6 fL (80.0-100.0); RBC 5.31 m/uL (3.80-5.40); RDW 15.7 % (11.5-15.5); WBC 16.6 k/uL (3.8-10.6)
[2017-04-30 07:58] LABS: INR 1.3 (<1.2); Prothrombin Time 13.2 sec (9.0-12.0)
[2017-04-30 08:00] LABS: ALT 21 U/L (9-52); AST 28 U/L (14-36); Alkaline Phosphatase 123 U/L (38-126); Anion Gap 14 mmol/L; Blood Urea Nitrogen 36 mg/dL (7-17); Calcium 9.8 mg/dL (8.4-10.2); Carbon Dioxide 28 mmol/L (22-30); Chloride 97 mmol/L (98-107); Glucose 124 mg/dL (74-99); Non-African American GFR(MDRD) >60 (>60 ml/min/1.73 sqM); Potassium 4.4 mmol/L (3.5-5.1); Sodium 139 mmol/L (137-145); Total Bilirubin 0.7 mg/dL (0.2-1.3)
--- NOTE | 2017-04-30 08:48 | P.PN ---
Subjective Principal diagnosis: Congestive heart failure The patient is here essentially for CHF. The patient is doing much better but still has some edema. Breathing is still somewhat labored. Will continue current regimen or treatment. She has an underlying history of DVT and previous breast cancer also. Echocardiogram is pending. Objective - Vital Signs Vital signs: Vital Signs Temp 97.0 F L 04/30/17 07:00 Pulse 89 04/30/17 07:00 Resp 18 04/30/17 07:00 BP 143/75 04/30/17 07:00 Pulse Ox 90 L 04/30/17 07:00 Intake & Output 04/29/17 04/30/17 04/30/17 18:59 06:59 18:59 Intake Total 200 950 Balance 200 950 Weight 60 kg Intake: Oral 200 950 Other: Voiding Method Bedside Commode # Voids 2 2 # Bowel Movements 0 - Constitutional General appearance: Present: thin - EENT Eyes: Absent: abnormal pupil - Respiratory Respiratory: bilateral: diminished - Cardiovascular Rhythm: regular Heart sounds: normal: S1, S2 - Gastrointestinal General gastrointestinal: Present: soft. Absent: tenderness - Psychiatric Psychiatric: Present: A&O x's 3, appropriate affect - Labs CBC & Chem 7: 04/30/17 07:15 04/30/17 07:15 Labs: Abnormal Lab Results - Last 24 Hours (Table) 04/30/17 04/30/17 04/30/17 Range/Units 07:15 07:15 07:15 WBC 16.6 H (3.8-10.6) k/uL Hct 50.8 H (34.0-46.0) % RDW 15.7 H (11.5-15.5) % PT 13.2 H (9.0-12.0) sec INR 1.3 H (<1.2) Chloride 97 L (98-107) mmol/L BUN 36 H (7-17) mg/dL Glucose 124 H (74-99) mg/dL Assessment and Plan (1) CHF exacerbation Status: Acute (2) Acute exacerbation of chronic obstructive airways disease Status: Acute (3) CAD (coronary artery disease) Status: Acute (4) HTN (hypertension) Status: Acute (5) High risk for readmission Status: Acute (6) Ischemic cardiomyopathy Status: Acute Plan: We will go ahead and transition to by mouth medication with her Lasix today. I will keep her on site Medrol 40 mg every 8 hours and hopefully transition her to prednisone tomorrow. Anticipate discharge in a.m. Increase Coumadin today.
[2017-04-30] MEDS: FUROSEMIDE 40 MG TAB PO SCH ×2 (09:25→15:26)
[2017-04-30] MEDS ORDERED: WARFARIN 5 MG TAB PO ONE (18:00)
[2017-04-30] MEDS: SODIUM CHLORIDE 0.9% 1,000 ML IV SCH (19:54)
[2017-04-30] MEDS: ASPIRIN 81 MG CHEW PO SCH (20:04)
[2017-04-30] MEDS: ATORVASTATIN 40 MG TAB PO SCH (20:05)
[2017-05-01 00:16] VITALS: RESP 18
[2017-05-01 07:45] VITALS: PULSE 75; TEMP 97.7
[2017-05-01 08:27] VITALS: BP 134/80
[2017-05-01] MEDS: FUROSEMIDE 40 MG TAB PO SCH (08:58)
[2017-05-01] MEDS: LISINOPRIL 2.5 MG TAB PO SCH (08:58)
[2017-05-01] MEDS: methylPREDNISolone SOD SUCCI 40 MG/ML 1 ML VIAL IV SCH (08:58)
[2017-05-01] MEDS: CARVEDILOL 6.25 MG TAB PO SCH (08:58)
--- NOTE | 2017-05-01 09:09 | P.DS ---
Providers Date of admission: 04/24/17 21:06 Attending physician: Aric Ruano Primary care physician: Aric Ruano - Discharge Diagnosis(es) (1) CHF exacerbation Current Visit: Yes Status: Acute (2) Acute exacerbation of chronic obstructive airways disease Current Visit: No Status: Acute (3) CAD (coronary artery disease) Current Visit: No Status: Acute (4) HTN (hypertension) Current Visit: No Status: Acute (5) High risk for readmission Current Visit: No Status: Acute (6) Ischemic cardiomyopathy Current Visit: No Status: Acute Hospital Course: This is a discharge summary on a 72-year-old white female essentially admitted for exacerbation of congestive heart failure. The patient was doing quite well and developed more shortness of breath. She hasn't underlying COPD he was placed on appropriate steroids. She did quite well. INR still subtherapeutic but she will be discharged home to check this in about 5 days. The patient is discharged in stable condition and has appropriate support at home she is tolerating diet and will follow-up with her in about one week. Patient Condition at Discharge: Stable Plan - Discharge Summary New Discharge Prescriptions: New RX: Lisinopril [Zestril] 2.5 mg PO DAILY #30 tab RX: predniSONE 0 mg PO DIRECTED #18 tab Continue RX: Aspirin EC [Ecotrin Low Dose] 81 mg PO HS RX: Carvedilol [Coreg] 6.25 mg PO BID #60 tab RX: ALPRAZolam [Xanax] 0.25 mg PO TID PRN PRN Reason: Anxiety/Insomnia RX: Furosemide [Lasix] 40 mg PO BID Changed RX: Warfarin [Coumadin] 3.5 mg PO HS #30 Discharge Medication List RX: Aspirin EC [Ecotrin Low Dose] 81 mg PO HS 07/03/16 [History] RX: Carvedilol [Coreg] 6.25 mg PO BID #60 tab 08/08/16 [Rx] RX: ALPRAZolam [Xanax] 0.25 mg PO TID PRN 04/24/17 [History] RX: Furosemide [Lasix] 40 mg PO BID 04/24/17 [History] RX: Lisinopril [Zestril] 2.5 mg PO DAILY #30 tab 05/01/17 [Rx] RX: Warfarin [Coumadin] 3.5 mg PO HS #30 05/01/17 [Rx] RX: predniSONE 0 mg PO DIRECTED #18 tab 05/01/17 [Rx] Follow up Appointment(s)/Referral(s): [facility], [NON-STAFF] - Aric Ruano MD [Primary Care Provider] - 1 Week Patient Instructions/Handouts: Heart Failure (DC) Activity/Diet/Wound Care/Special Instructions: Cardiac diet, CHF folder given to patient. Discharge Disposition: HOME WITH HOME HEALTH SERVICES
[2017-05-01 09:15] LABS: INR 1.8 (<1.2); Prothrombin Time 17.6 sec (9.0-12.0)
== END 2017-05-01 14:55 | disposition home health service (06) | DRG 190 ==
LOC: EC 17:53 → 4MS4W 21:06
PROVIDERS: ADMIT Family Medicine; ATTEND Family Medicine
DX: J44.1 Chronic obstructive pulmonary disease with (acute) exacerbation (principal); I50.23 Acute on chronic systolic (congestive) heart failure; J96.11 Chronic respiratory failure with hypoxia; I27.2 Other secondary pulmonary hypertension; I11.0 Hypertensive heart disease with heart failure; I73.9 Peripheral vascular disease, unspecified; I25.5 Ischemic cardiomyopathy; E78.5 Hyperlipidemia, unspecified; I25.10 Atherosclerotic heart disease of native coronary artery without angina pectoris; F41.9 Anxiety disorder, unspecified; Z85.3 Personal history of malignant neoplasm of breast; Z87.891 Personal history of nicotine dependence; Z79.01 Long term (current) use of anticoagulants; Z79.82 Long term (current) use of aspirin; Z79.899 Other long term (current) drug therapy; Z88.5 Allergy status to narcotic agent; Z95.5 Presence of coronary angioplasty implant and graft; Z99.81 Dependence on supplemental oxygen; Z66 Do not resuscitate; Z82.49 Family history of ischemic heart disease and other diseases of the circulatory system
CPT/HCPCS: 36415; 71020; 80048; 80053; 82550; 82553; 83880; 84484; 85025; 85027; 85610; 85730; 93005; 93306; 94640; 96361; 96374; 99285